=== PATIENT | female | born 1940 | race Caucasian/White ===

== ENCOUNTER 2020-09-29 20:24 | Inpatient (IN) | payer MEDICARE, OTHER ==
[~2020-09-29] VITALS: Ht 165.1 cm; Wt 81.2 kg
[2020-09-29] MEDS ORDERED: DOCU-141 PO (21:36)
[2020-09-29] MEDS ORDERED: norco PO (21:36)
[2020-09-29] MEDS ORDERED: METO50TA7 PO (21:36)
[2020-09-29] MEDS ORDERED: MECL-159 PO (21:36)
[2020-09-29] MEDS ORDERED: INSU100I26 SQ (21:36)
[2020-09-29] MEDS ORDERED: FURO-152 PO (21:36)
[2020-09-29] MEDS ORDERED: ZOLP5TAB2 PO (21:36)
[2020-09-29] MEDS ORDERED: ISOS10TA2 PO (21:36)
[2020-09-29] MEDS ORDERED: novolog SUBCUT (21:36)
[2020-09-29] MEDS ORDERED: MONT10TA22 PO (21:36)
[2020-09-29] MEDS ORDERED: BENA20TA78 PO (21:36)
[2020-09-29] MEDS ORDERED: ROSU10TA2 PO (21:36)
[2020-09-29] MEDS ORDERED: AZEL6DRO5 RIGHT EAR (21:36)
[2020-09-29] MEDS ORDERED: AMLO1CAP PO (21:36)
[2020-09-29] MEDS ORDERED: DEXL60CA3 PO (21:36)
[2020-09-29] MEDS ORDERED: RANO500T3 PO (21:36)
[2020-09-29] MEDS ORDERED: MIRA25TA PO (21:36)
[2020-09-29] MEDS ORDERED: ISOS30TA86 PO (21:36)
[2020-09-29] MEDS ORDERED: SENN-261 PO (21:36)
[2020-09-29 21:42] LABS: HEMATOCRIT 33.8 % (31.2-41.9); MEAN CORPUSCULAR HEMOGLOBIN 28.8 uug (24.7-32.8); MEAN CORPUSCULAR VOLUME 88.5 fL (75.5-95.3); PLATELET COUNT (AUTO) 152 K/uL (179-408)
[2020-09-29 22:00] LABS: BILIRUBIN,TOTAL 0.2 mg/dL (0.2-1.0); CREATININE 0.9 mg/dL (0.6-1.3); POTASSIUM 4.4 mmol/L (3.5-5.1)
[2020-09-29] MEDS ORDERED: ACETAMINOPHEN ES 500 MG TABLET PO ONE (22:45)
[2020-09-29] MEDS ORDERED: IV NORMAL SALINE 250 ML IV ONE (23:32)
[2020-09-29] MEDS ORDERED: IOHEXOL 350 100 ML INFUS..BTL ONE (23:32)
[2020-09-29] MEDS ORDERED: SWABABLE VALVE TRANSFER SET EA MC ONE (23:32)
[2020-09-29] MEDS ORDERED: NITROGLYCERIN 0.4 MG/TAB BOTTLE SL ONE (23:54)
[2020-09-30] MEDS ORDERED: NITROGLYCERIN 0.4 MG/TAB BOTTLE SL ONE
[2020-09-30] MEDS ORDERED: NITROGLYCERIN OINT 1 GM PACKET TP ONE ×2 (00:03)
[2020-09-30] MEDS ORDERED: LORAZEPAM 2 MG/1 ML VIAL IV ONE (00:30)
[2020-09-30] MEDS ORDERED: ACETAMINOPHEN ES 500 MG TABLET ONE (00:38)
[2020-09-30] MEDS ORDERED: LORAZEPAM 2 MG/1 ML VIAL ONE (00:39)
[2020-09-30] MEDS ORDERED: DEXTROSE 50% 50 ML DISP.SYRIN IV PRN ×2 (02:00→11:15)
[2020-09-30] MEDS ORDERED: Z GUARD REMEDY PASTE 57 GM TUBE TOP PRN (02:00)
[2020-09-30] MEDS ORDERED: MAGNESIUM HYDROXIDE 30 ML LIQUID UDC PO PRN (02:00)
[2020-09-30] MEDS ORDERED: ONDANSETRON 4 MG/2 ML VIAL IV PRN (02:00)
[2020-09-30] MEDS ORDERED: ENOXAPARIN SODIUM 40 MG/0.4 ML DISP.SYRIN SQ SCH (02:00)
[2020-09-30 04:59] VITALS: BP 146/63
[2020-09-30] MEDS: PANTOPRAZOLE SODIUM 40 MG TABLET.DR PO SCH (06:04)
[2020-09-30 06:48] LABS: MEAN CORPUSCULAR HEMOGLOBIN 29.6 uug (24.7-32.8); MEAN CORPUSCULAR VOLUME 88.3 fL (75.5-95.3); PLATELET COUNT (AUTO) 184 K/uL (179-408)
[2020-09-30 07:18] LABS: BILIRUBIN,TOTAL 0.2 mg/dL (0.2-1.0); CREATININE 0.7 mg/dL (0.6-1.3); MAGNESIUM 2.6 mg/dL (1.8-2.4); PHOSPHOROUS 4.3 mg/dL (2.5-4.9); TOTAL PROTEIN, SERUM 6.7 g/dL (6.4-8.2)
[2020-09-30 07:35] LABS: THYROID STIMULATING HORMONE 2.633 mIU/mL (0.358-3.740)
[2020-09-30] MEDS: BLOOD SUGAR DIAGNOSTIC 1 EACH STRIP VI SCH ×4 (08:10→20:34)
[2020-09-30] MEDS: INSULIN REGULAR, HUMAN 300 UNIT/3 ML VIAL SQ PRN ×4 (08:12→20:43)
[2020-09-30] MEDS ORDERED: Medication Not On Formulary EA (Amlodipine Besylate/Benazepril (Lotrel 10-20 Mg Capsule) PO SCH (11:15)
[2020-09-30] MEDS ORDERED: INSULIN REGULAR, HUMAN 300 UNIT/3 ML VIAL SQ PRN (11:15)
[2020-09-30] MEDS ORDERED: DOCUSATE SODIUM 100 MG CAPSULE PO PRN (11:15)
[2020-09-30] MEDS ORDERED: BLOOD SUGAR DIAGNOSTIC 1 EACH STRIP VI SCH (11:30)
[2020-09-30 11:50] VITALS: BP 168/63
[2020-09-30] MEDS ORDERED: METOPROLOL SUCCINATE XL 50 MG TAB.SR.24H PO SCH (12:00)
[2020-09-30] MEDS ORDERED: AMLODIPINE 10 MG TABLET PO SCH (12:00)
[2020-09-30] MEDS ORDERED: FUROSEMIDE 20 MG TABLET PO SCH (12:00)
[2020-09-30] MEDS ORDERED: ISOSORBIDE DINITRATE 10 MG TABLET PO SCH (12:00)
[2020-09-30] MEDS: RANOLAZINE 500 MG TAB.ER.12H PO SCH ×2 (12:16→20:19)
[2020-09-30] MEDS: BENAZEPRIL HCL 20 MG TABLET PO SCH (12:17)
[2020-09-30 16:00] VITALS: BP 125/59
[2020-09-30] MEDS ORDERED: FUROSEMIDE 40 MG/4 ML VIAL IV ONE (16:30)
[2020-09-30] MEDS: ASPIRIN 81 MG TAB.CHEW PO SCH (17:25)
[2020-09-30] MEDS: ISOSORBIDE MONONITRATE 60 MG TAB.SR.24H PO SCH (17:26)
[2020-09-30 20:00] VITALS: BP 116/54
[2020-09-30] MEDS: MONTELUKAST SODIUM 10 MG TABLET PO SCH (20:19)
[2020-09-30] MEDS: ATORVASTATIN 40 MG TABLET PO SCH (20:19)
[2020-09-30] MEDS: METOPROLOL SUCCINATE XL 50 MG TAB.SR.24H PO SCH (20:29)
[2020-09-30] MEDS: ENOXAPARIN SODIUM 80 MG/0.8 ML DISP.SYRIN SQ SCH (20:41)
[2020-09-30] MEDS: INSULIN GLARGINE,HUM 300 UNITS/3 ML CARTRIDGE SQ SCH (20:42)
[2020-09-30] MEDS ORDERED: ATORVASTATIN 20 MG TABLET PO SCH (21:00)
[2020-09-30] MEDS: ZOLPIDEM 5 MG TABLET PO PRN (21:56)
[2020-10-01 00:30] VITALS: BP 137/56
[2020-10-01] MEDS: ACETAMINOPHEN 325 MG TABLET PO PRN ×4 (02:30→22:20)
[2020-10-01 04:17] VITALS: BP 125/52
[2020-10-01] MEDS: PANTOPRAZOLE SODIUM 40 MG TABLET.DR PO SCH (06:01)
[2020-10-01] MEDS: BLOOD SUGAR DIAGNOSTIC 1 EACH STRIP VI SCH ×4 (06:41→21:00)
[2020-10-01] MEDS ORDERED: FUROSEMIDE 20 MG/2 ML VIAL IV ONE (07:30)
[2020-10-01] MEDS: ASPIRIN 81 MG TAB.CHEW PO SCH (08:06)
[2020-10-01 08:13] LABS: HEMATOCRIT 32.9 % (31.2-41.9); MEAN CORPUSCULAR HEMOGLOBIN 29.4 uug (24.7-32.8); PLATELET COUNT (AUTO) 175 K/uL (179-408)
[2020-10-01] MEDS: RANOLAZINE 500 MG TAB.ER.12H PO SCH ×2 (08:13→22:10)
[2020-10-01] MEDS: BENAZEPRIL HCL 20 MG TABLET PO SCH (08:13)
[2020-10-01] MEDS: ISOSORBIDE MONONITRATE 60 MG TAB.SR.24H PO SCH (08:13)
[2020-10-01] MEDS: METOPROLOL SUCCINATE XL 50 MG TAB.SR.24H PO SCH ×2 (08:14→21:00)
[2020-10-01] MEDS: ENOXAPARIN SODIUM 80 MG/0.8 ML DISP.SYRIN SQ SCH ×2 (08:14→22:15)
[2020-10-01 08:22] LABS: CREATININE 0.8 mg/dL (0.6-1.3); POTASSIUM 4.3 mmol/L (3.5-5.1)
[2020-10-01] MEDS ORDERED: Medication Not On Formulary EA (Rosuvastatin Calcium (Crestor) 10 MG) PO SCH (09:00)
[2020-10-01] MEDS: SENNOSIDES 1 TABLET PO SCH (10:58)
[2020-10-01] MEDS: INSULIN REGULAR, HUMAN 300 UNIT/3 ML VIAL SQ PRN ×3 (12:14→22:39)
[2020-10-01] MEDS: GUAIFENESIN/CODEINE 5 ML LIQUID UDC PO PRN (15:22)
[2020-10-01 16:06] VITALS: BP 127/83
[2020-10-01 16:20] VITALS: BP 128/55
[2020-10-01] MEDS: methylPREDNISolone SOD SUCC 40 MG/ML VIAL IV SCH ×2 (16:32→22:12)
[2020-10-01] MEDS: ALBUTEROL SULFATE 2.5 MG/3 ML NEBU NEB PRN ×2 (16:37→22:24)
[2020-10-01] MEDS: IPRATROPIUM BROMIDE 0.5 MG/2.5 ML NEBU NEB PRN ×2 (16:37→22:23)
[2020-10-01 20:00] VITALS: BP 129/60
[2020-10-01] MEDS: MONTELUKAST SODIUM 10 MG TABLET PO SCH (21:00)
[2020-10-01 21:32] LABS: *BILIRUBIN,URIN NEGATIVE (NEGATIVE); *BLOOD, URINE NEGATIVE (NEGATIVE); *CLARITY,URINE CLEAR (CLEAR); *COLOR,URINE YELLOW (YELLOW); *KETONES,URINE NEGATIVE (NEGATIVE); *UROBILINOGEN,URINE 0.2 E.U./dl (NORMAL); LEUKOCYTE ESTERASE ,URINE NEGATIVE (NEGATIVE); NITRITE, URINE NEGATIVE (NEGATIVE); UGLUCOSE 2+ (NEGATIVE)
[2020-10-01] MEDS: ATORVASTATIN 40 MG TABLET PO SCH (22:10)
[2020-10-01] MEDS: ZOLPIDEM 5 MG TABLET PO PRN (22:11)
[2020-10-01] MEDS: INSULIN GLARGINE,HUM 300 UNITS/3 ML CARTRIDGE SQ SCH (22:40)
[2020-10-01] MEDS ORDERED: MORPHINE SULFATE 2 MG/1 ML DISP.SYRIN IV ONE (23:30)
[2020-10-02 04:00] VITALS: BP 171/76
[2020-10-02] MEDS: methylPREDNISolone SOD SUCC 40 MG/ML VIAL IV SCH ×3 (06:59→21:42)
[2020-10-02] MEDS: PANTOPRAZOLE SODIUM 40 MG TABLET.DR PO SCH (06:59)
[2020-10-02] MEDS: BLOOD SUGAR DIAGNOSTIC 1 EACH STRIP VI SCH ×4 (07:04→21:08)
[2020-10-02] MEDS ORDERED: FUROSEMIDE 20 MG/2 ML VIAL IV ONE (07:45)
[2020-10-02] MEDS: SENNOSIDES 1 TABLET PO SCH (08:17)
[2020-10-02] MEDS: RANOLAZINE 500 MG TAB.ER.12H PO SCH ×2 (08:17→20:45)
[2020-10-02 08:18] LABS: CREATININE 0.8 mg/dL (0.6-1.3); MAGNESIUM 1.9 mg/dL (1.8-2.4); POTASSIUM 4.3 mmol/L (3.5-5.1)
[2020-10-02] MEDS: INSULIN REGULAR, HUMAN 300 UNIT/3 ML VIAL SQ PRN ×4 (08:35→21:07)
[2020-10-02] MEDS: METOPROLOL SUCCINATE XL 50 MG TAB.SR.24H PO SCH ×2 (08:41→20:45)
[2020-10-02] MEDS: BENAZEPRIL HCL 20 MG TABLET PO SCH (08:42)
[2020-10-02] MEDS: ISOSORBIDE MONONITRATE 60 MG TAB.SR.24H PO SCH (08:43)
[2020-10-02] MEDS: ASPIRIN 81 MG TAB.CHEW PO SCH (08:43)
[2020-10-02 08:45] LABS: HEMATOCRIT 34.3 % (31.2-41.9); MEAN CORPUSCULAR HEMOGLOBIN 29.5 uug (24.7-32.8); MEAN CORPUSCULAR VOLUME 87.2 fL (75.5-95.3); PLATELET COUNT (AUTO) 191 K/uL (179-408)
[2020-10-02] MEDS: ACETAMINOPHEN 325 MG TABLET PO PRN ×2 (08:48→20:54)
[2020-10-02] MEDS: ENOXAPARIN SODIUM 80 MG/0.8 ML DISP.SYRIN SQ SCH ×2 (08:59→21:05)
[2020-10-02] MEDS: GUAIFENESIN/CODEINE 5 ML LIQUID UDC PO PRN (09:22)
[2020-10-02 11:36] VITALS: BP 118/55
[2020-10-02] MEDS: IPRATROPIUM BROMIDE 0.5 MG/2.5 ML NEBU NEB SCH ×3 (11:58→19:23)
[2020-10-02] MEDS: ALBUTEROL SULFATE 2.5 MG/3 ML NEBU NEB SCH ×3 (11:58→19:24)
[2020-10-02 15:52] VITALS: BP 119/48
[2020-10-02 20:00] VITALS: BP 136/57
[2020-10-02] MEDS: ATORVASTATIN 40 MG TABLET PO SCH (20:44)
[2020-10-02] MEDS: MONTELUKAST SODIUM 10 MG TABLET PO SCH (20:45)
[2020-10-02] MEDS: INSULIN GLARGINE,HUM 300 UNITS/3 ML CARTRIDGE SQ SCH (21:06)
[2020-10-02] MEDS: ZOLPIDEM 5 MG TABLET PO PRN (22:31)
[2020-10-03 04:00] VITALS: BP 147/72
[2020-10-03] MEDS: ALBUTEROL SULFATE 2.5 MG/3 ML NEBU NEB PRN (04:44)
[2020-10-03] MEDS: IPRATROPIUM BROMIDE 0.5 MG/2.5 ML NEBU NEB PRN (04:44)
[2020-10-03] MEDS: ACETAMINOPHEN 325 MG TABLET PO PRN ×2 (04:58→09:45)
[2020-10-03] MEDS: PANTOPRAZOLE SODIUM 40 MG TABLET.DR PO SCH (06:06)
[2020-10-03] MEDS: BLOOD SUGAR DIAGNOSTIC 1 EACH STRIP VI SCH ×4 (06:07→21:15)
[2020-10-03 06:41] LABS: HEMATOCRIT 33.7 % (31.2-41.9); MEAN CORPUSCULAR HEMOGLOBIN 29.8 uug (24.7-32.8); MEAN CORPUSCULAR VOLUME 87.6 fL (75.5-95.3); PLATELET COUNT (AUTO) 184 K/uL (179-408)
[2020-10-03 06:59] LABS: CREATININE 0.9 mg/dL (0.6-1.3); PHOSPHOROUS 4.4 mg/dL (2.5-4.9); POTASSIUM 4.4 mmol/L (3.5-5.1)
[2020-10-03] MEDS: ALBUTEROL SULFATE 2.5 MG/3 ML NEBU NEB SCH ×4 (07:30→20:33)
[2020-10-03] MEDS: IPRATROPIUM BROMIDE 0.5 MG/2.5 ML NEBU NEB SCH ×4 (07:30→20:33)
[2020-10-03 08:31] LABS: ABG BASE EXCESS -3.1 mmol/L; ABG HCO3 20.4 mmol/L; ABG PH 7.422 (7.350-7.450); ABG PO2 68.6 mmHg (75.0-100.0); ABG SITE RIGHT RADIAL; ABG TOTAL HEMOGLOBIN 13.7 G/dL (12.0-16.0); COHb 1.8 % (0.5-1.5); MetHb 0.3 % (0.0-1.5); O2Hb 91.9 % (94.0-97.0); VENT MODE ROOM AIR
[2020-10-03] MEDS: SENNOSIDES 1 TABLET PO SCH (09:00)
[2020-10-03] MEDS: methylPREDNISolone SOD SUCC 40 MG/ML VIAL IV SCH ×2 (09:24→21:05)
[2020-10-03] MEDS: ASPIRIN 81 MG TAB.CHEW PO SCH (09:26)
[2020-10-03] MEDS: RANOLAZINE 500 MG TAB.ER.12H PO SCH ×2 (09:26→21:05)
[2020-10-03] MEDS: BENAZEPRIL HCL 20 MG TABLET PO SCH (09:28)
[2020-10-03] MEDS: ISOSORBIDE MONONITRATE 60 MG TAB.SR.24H PO SCH (09:28)
[2020-10-03] MEDS: FUROSEMIDE 20 MG TABLET PO SCH (09:28)
[2020-10-03] MEDS: DILTIAZEM HCL CD 120 MG CAP.SR.24H PO SCH (09:28)
[2020-10-03] MEDS: ENOXAPARIN SODIUM 80 MG/0.8 ML DISP.SYRIN SQ SCH ×2 (09:30→21:09)
[2020-10-03] MEDS: INSULIN REGULAR, HUMAN 300 UNIT/3 ML VIAL SQ PRN ×4 (09:32→21:10)
[2020-10-03 12:00] VITALS: BP 121/47
[2020-10-03 16:00] VITALS: BP 136/62
[2020-10-03] MEDS ORDERED: HYDROCODONE/APAP 5-325MG TABLET PO PRN (18:00)
[2020-10-03] MEDS ORDERED: HYDROCODONE/APAP 5-325MG TABLET PO ONE (18:02)
[2020-10-03 20:25] VITALS: BP 135/60
[2020-10-03] MEDS: MONTELUKAST SODIUM 10 MG TABLET PO SCH (21:04)
[2020-10-03] MEDS: ATORVASTATIN 40 MG TABLET PO SCH (21:05)
[2020-10-03] MEDS: INSULIN GLARGINE,HUM 300 UNITS/3 ML CARTRIDGE SQ SCH (21:11)
[2020-10-03] MEDS: ZOLPIDEM 5 MG TABLET PO PRN (22:05)
[2020-10-04] MEDS: ACETAMINOPHEN 325 MG TABLET PO PRN (03:51)
[2020-10-04 04:05] VITALS: BP 155/67
[2020-10-04] MEDS: BLOOD SUGAR DIAGNOSTIC 1 EACH STRIP VI SCH ×2 (06:05→12:05)
[2020-10-04] MEDS: PANTOPRAZOLE SODIUM 40 MG TABLET.DR PO SCH (06:05)
[2020-10-04] MEDS: INSULIN REGULAR, HUMAN 300 UNIT/3 ML VIAL SQ PRN ×2 (07:41→12:06)
[2020-10-04] MEDS: IPRATROPIUM BROMIDE 0.5 MG/2.5 ML NEBU NEB SCH ×3 (07:56→15:19)
[2020-10-04] MEDS: ALBUTEROL SULFATE 2.5 MG/3 ML NEBU NEB SCH ×3 (07:56→15:19)
[2020-10-04] MEDS: ASPIRIN 81 MG TAB.CHEW PO SCH (08:16)
[2020-10-04] MEDS: RANOLAZINE 500 MG TAB.ER.12H PO SCH (08:16)
[2020-10-04] MEDS: FUROSEMIDE 20 MG TABLET PO SCH (08:16)
[2020-10-04] MEDS: methylPREDNISolone SOD SUCC 40 MG/ML VIAL IV SCH (08:16)
[2020-10-04] MEDS: SENNOSIDES 1 TABLET PO SCH (08:16)
[2020-10-04] MEDS: ISOSORBIDE MONONITRATE 60 MG TAB.SR.24H PO SCH (08:17)
[2020-10-04] MEDS: DILTIAZEM HCL CD 120 MG CAP.SR.24H PO SCH (08:17)
[2020-10-04] MEDS: ENOXAPARIN SODIUM 80 MG/0.8 ML DISP.SYRIN SQ SCH (08:18)
[2020-10-04] MEDS: BENAZEPRIL HCL 20 MG TABLET PO SCH (08:21)
[2020-10-04 11:30] VITALS: BP 119/49
[2020-10-04 12:16] VITALS: BP 119/49
[2020-10-04] MEDS ORDERED: levoFLOXacin 500 MG/D5W 500 MG in PREMIXED 1 EACH IV ONE (13:00)
[2020-10-04] MEDS ORDERED: DILT120C87 PO (13:02)
[2020-10-04] MEDS ORDERED: FLUT1BLS4 IH (13:02)
[2020-10-04] MEDS ORDERED: Isosorbide Mononitrate PO (13:02)
[2020-10-04] MEDS ORDERED: ALBU8.5H8 INH (13:02)
[2020-10-04] MEDS ORDERED: BENA20TA9 PO (13:02)
[2020-10-04] MEDS ORDERED: FURO20TA4 PO (13:02)
[2020-10-04] MEDS ORDERED: ACET325T53 PO (13:02)
[2020-10-04] MEDS ORDERED: ASPI81TA31 PO (13:02)
[2020-10-04] MEDS ORDERED: LEVO500T90 PO (13:02)
[2020-10-04] MEDS ORDERED: GUAI5SYR4 PO (13:02)
[2020-10-04] MEDS ORDERED: MULT-594 PO (13:02)
[2020-10-04] MEDS ORDERED: METH4TAB3 PO (13:02)
[2020-10-04] MEDS ORDERED: HYDR-3972 PO (13:02)
[2020-10-04] MEDS ORDERED: ISOS60TA72 PO (13:15)
[2020-10-04 15:45] VITALS: BP 148/69
== END 2020-10-04 16:45 | disposition home health service (06) | DRG 280 ==
LOC: ER 20:26 → TELE3 09-30 03:07 → MEDSURG3 10-01 14:00
PROVIDERS: ADMIT Hospitalist; ATTEND Internal Medicine
DX: I21.4 Non-ST elevation (NSTEMI) myocardial infarction (principal); I50.33 Acute on chronic diastolic (congestive) heart failure; N17.0 Acute kidney failure with tubular necrosis; J98.11 Atelectasis; D68.59 Other primary thrombophilia; J44.1 Chronic obstructive pulmonary disease with (acute) exacerbation; I11.0 Hypertensive heart disease with heart failure; I25.10 Atherosclerotic heart disease of native coronary artery without angina pectoris; Z98.61 Coronary angioplasty status; Z87.891 Personal history of nicotine dependence; Z90.49 Acquired absence of other specified parts of digestive tract; D17.79 Benign lipomatous neoplasm of other sites; E11.65 Type 2 diabetes mellitus with hyperglycemia; D69.6 Thrombocytopenia, unspecified; G89.4 Chronic pain syndrome; Z74.09 Other reduced mobility; K21.9 Gastro-esophageal reflux disease without esophagitis; K44.9 Diaphragmatic hernia without obstruction or gangrene; N32.81 Overactive bladder; I08.0 Rheumatic disorders of both mitral and aortic valves; H54.62 Unqualified visual loss, left eye, normal vision right eye; E66.9 Obesity, unspecified; Z68.29 Body mass index [BMI] 29.0-29.9, adult; E78.5 Hyperlipidemia, unspecified; E27.9 Disorder of adrenal gland, unspecified; M19.90 Unspecified osteoarthritis, unspecified site; Z20.822 Contact with and (suspected) exposure to COVID-19; Z97.0 Presence of artificial eye; M84.463D Pathological fracture, right fibula, subsequent encounter for fracture with routine healing; I45.10 Unspecified right bundle-branch block
CPT/HCPCS: 36415; 36600; 70030-TC; 71045; 71275; 73610; 82785; 83605; 83615; 83735; 84100; 84443; 85025; 85730; 86140; 87040; 87086; 93005; 93307; 94640; 94664; 97161; A4663; A9150; C1758; G0378; J1650; J1815; J1940; J1956; J2060; J2270; J2920; J3590; J7030; J7050; Q9967